=== PATIENT | male | born 1960 | race Caucasian/White ===

== ENCOUNTER 2024-02-17 15:36 | Inpatient (IN) | payer OTHER, SELFPAY ==
[2024-02-17] VITALS (16 sets, daily range): BP systolic 85–134; BP diastolic 56–74; PULSE 63–94; RESP 12–20; TEMP 36.3–36.4; O2SAT 98–100; BMI 26.3
--- NOTE | ~2024-02-17 | XR_ITS ---
EXAMINATION: XR chest 1V portable DATE: 02/18/2024 08:41 INDICATION: Hypertension. TECHNIQUE: A single frontal view of the chest was obtained. COMPARISON: None. FINDINGS: There is no pneumonia, pleural effusion, or pneumothorax. The heart size is normal. IMPRESSION: 1. No acute cardiopulmonary disease. Reviewed, dictated and finalized at location A. ITALITY INTERN
--- NOTE | ~2024-02-17 | XR_ITS ---
EXAM: XR lumbar spine 2-3V DATE: 02/17/2024 18:39 HISTORY: fall, limited range of motion . COMPARISON: None available. FINDINGS: 5 nonrib-bearing lumbar-type vertebral bodies. Pedicles intact. Normal vertebral body alig nment. Mild scoliosis. Vertebral body heights preserved. Multilevel degenerative disc disease. Multil evel moderate facet arthropathy. No fracture or dislocation. IMPRESSION: No acute fracture or traumatic malalignment detected in the lumbar spine. Reviewed, dictated and finalized at location K. STANT PROPERTY MANAGER
[2024-02-17 16:27] LABS: Basophils Percent Auto 0.4 % (0.2-1.2); Eosinophils Absolute Auto 0.1 K/mm3 (0-0.3); Eosinophils Percent Auto 0.9 % (0-4.4); Hematocrit 40.7 % (42.0-52.0); Hemoglobin 13.4 g/dL (14.0-18.0); Immature Granulocyte Absolute 0.03 K/mm3 (0.00-0.031); Immature Granulocyte Percent A 0.3 % (0-0.5); Lymphocytes Absolute Auto 0.98 K/mm3 (0.9-3.2); Lymphocytes Percent Auto 9.3 % (18.3-44.2); Mean Corpuscular HGB Conc 32.9 g/dl (32-36); Mean Corpuscular Hemoglobin 32.3 pg (26-34); Mean Corpuscular Volume 98.1 fl (80-100); Mean Platelet Volume 9.3 fl (7.4-10.4); Monocytes Absolute Auto 0.6 K/mm3 (0.1-0.6); Monocytes Percent Auto 5.6 % (2.6-8.5); Neutrophils Absolute Auto 8.8 K/mm3 (1.3-6.7); Neutrophils Percent Auto 83.5 % (45.5-73.1); Platelet Count Result 225 k/mm3 (150-375); Red Blood Count 4.15 M/mm3 (4.6-6.20); Red Cell Distribution Width 12.7 % (11.5-14.5); White Blood Count 10.5 K/mm3 (4.5-10.0)
[2024-02-17] MEDS: SODIUM CHLORIDE 0.9% IV 1,000 ML 999 ML IV CONT (16:34)
[2024-02-17 16:35] LABS: Alanine Aminotransferase 23 U/L (6-50); Albumin Level 4.1 g/dL (3.5-5.1); Alkaline Phosphatase 59 U/L (38-126); Anion Gap 7 mmol/L (4-12); Aspartate Amino Transferase 29 U/L (17-59); Bilirubin,Total 0.7 mg/dL (0.2-1.3); Blood Urea Nitrogen 20 mg/dL (9-20); Calcium 8.8 mg/dL (8.4-10.2); Carbon Dioxide 24 mmol/L (22-30); Chloride 109 mmol/L (98-107); Estimated CRCL calculation 58 ml/min; Estimated Glomerular Filt Rate > 60; Glucose 140 mg/dL (65-110); Potassium 4.5 mmol/L (3.4-5.0); Sodium 140 mmol/L (137-145)
[2024-02-17 16:39] LABS: INR 1.1; Prothrombin Time 14.1 Seconds (11.1-14.7)
[2024-02-17 16:40] LABS: Partial Thromboplastin Time 20.2 Seconds (22.3-36.8)
--- NOTE | 2024-02-17 17:16 | ED.GIBLEED ---
HPI - GI Bleed General Chief complaint: Abdominal Pain Stated complaint: lower back pain, BRBPR Time Seen by Provider: 02/17/24 16:22 History of Present Illness HPI Narrative: Pt has had 3 bright red stools today accompanied by crampy abdominal pain right before. After last BM pt had syncopal episode and wound up on the floor. Pt said he woke up and tried to get up and passed out again. Pt denies abdomina pain now. SBP on 80's. Related Data Allergies Allergy/AdvReac Type Severity Reaction Status Date / Time codeine AdvReac Intermediate DROWSINESS Verified 02/26/19 16:17 Review of Systems Review of Systems: All systems reviewed & are unremarkable except as noted in HPI and below PMFSH Past Medical History Medical History Benign colon polyp Diverticulosis Kidney stones Surgical History Surgical History History of colonoscopy History of tonsillectomy Family History Family History Father Diabetes mellitus Family history of cardiovascular disease Grandparent Diabetes mellitus Family history of glaucoma Family history of coronary artery disease Family history of malignant neoplasm of breast in first degree relative Social History Social History (Updated 02/17/24 @ 18:07 by Aline Ellison PA-C) Social History: Surrogate medical decision maker: Code status: Full code. Smoking status: Never smoker Second hand tobacco smoke exposure: No Alcohol intake: never Exam Const: General: healthy appearing Orientation/consciousness: patient oriented x3 Limitations: no limitations Eyes: Conjunctivae: conjunctivae normal EOM: EOMs intact bilaterally Chest: Chest palpation & inspection: normal inspection of the chest Resp: Effort & Inspection: normal respiratory effort Auscultation: clear to auscultation bilaterally Cardio: Rate: regular rate Rhythm: regular rhythm GI: GI Palp: Yes Soft to palpation and No Tenderness to palpation present (GI) Auscultation: normal bowel sounds Skin: General skin exam: normal color Wounds: no wounds Neuro: General: patient oriented x3, moves all extremities and no focal motor deficits Speech: normal speech Extrem: General: normal to inspection and no clubbing, cyanosis or edema Psych: Mental Status: mental status grossly normal Affect: normal affect Attitude: cooperative Course Vital Signs Vital signs: Vital Signs Temperature 97.3 F L 02/17/24 15:39 Pulse Rate 63 02/17/24 15:39 Respiratory Rate 15 02/17/24 15:39 Blood Pressure 95/73 L 02/17/24 15:39 Pulse Oximetry 100 02/17/24 15:39 Oxygen Delivery Room Air 02/17/24 15:39 Temperature 97.3 F L 02/17/24 15:39 Pulse Rate 77 02/17/24 18:05 Respiratory Rate 13 02/17/24 18:05 Blood Pressure 105/71 02/17/24 18:05 Pulse Oximetry 98 02/17/24 18:05 Oxygen Delivery Room Air 02/17/24 15:39 MDM - GI Bleed MDM Narrative Medical decision making narrative: Pt presents with 3 bright red stools and syncope x 2. SBP 80's. Will get lbs and type and screen and give NS bolus for pressure. Discussed with Dr Macario and will consult. Discussed with Aline Lucas admit to IMU. Lab Data 02/17/24 16:18 02/17/24 16:18 Labs: Lab Results 02/17/24 Range/Units 16:18 WBC 10.5 H (4.5-10.0) K/mm3 RBC 4.15 L (4.6-6.20) M/mm3 Hgb 13.4 L (14.0-18.0) g/dL Hct 40.7 L (42.0-52.0) % MCV 98.1 (80-100) fl MCH 32.3 (26-34) pg MCHC 32.9 (32-36) g/dl RDW 12.7 (11.5-14.5) % Plt Count 225 (150-375) k/mm3 MPV 9.3 (7.4-10.4) fl Immature Gran % (Auto) 0.3 (0-0.5) % Neut % (Auto) 83.5 H (45.5-73.1) % Lymph % (Auto) 9.3 L (18.3-44.2) % [place] % (Auto) 5.6 (2.6-8.5) % Eos % (Auto) 0.9 (0-4.4) % Baso % (Auto) 0.4 (0.2-1.2) % Lymph # (Auto) 0.98 (0.9-3.2) K/mm3 [place] # (Auto) 0.6 (0.1-0.6) K/mm3 Eos # (Auto) 0.1 (0-0.3) K/mm3 Baso # (Auto) 0.0 (0.0-0.1) K/mm3 Abs Immat Gran (auto) 0.03 (0.00-0.031) K/mm3 Absolute Neuts (auto) 8.8 H (1.3-6.7) K/mm3 Absolute Nucleated RBC 0.000 (0.0-0.012) K/mm3 Nucleated RBC % 0.0 (0.0-0.2) % PT 14.1 (11.1-14.7) Seconds INR 1.1 APTT 20.2 L (22.3-36.8) Seconds Sodium 140 (137-145) mmol/L Potassium 4.5 (3.4-5.0) mmol/L Chloride 109 H (98-107) mmol/L Carbon Dioxide 24 (22-30) mmol/L Anion Gap 7 (4-12) mmol/L BUN 20 (9-20) mg/dL Creatinine 1.20 (0.7-1.3) mg/dL Estim Creat Clear Calc 58 ml/min Estimated GFR > 60 (59 - ) Glucose 140 H (65-110) mg/dL Calcium 8.8 (8.4-10.2) mg/dL Total Bilirubin 0.7 (0.2-1.3) mg/dL AST 29 (17-59) U/L ALT 23 (6-50) U/L Alkaline Phosphatase 59 (38-126) U/L Total Protein 8.0 (6.3-8.2) g/dL Albumin 4.1 (3.5-5.1) g/dL Blood Type B Positive Antibody Screen Negative Critical Care Time Critical Care Time Critical Care Time: Yes Total Critical Care Time: 33 Discharge Plan Discharge Clinical Impression: Acute GI bleeding, Syncope Patient Disposition: Still a Patient Condition: Improved Instructions: Antibiotic Form Follow-up/Referrals: Maxwell,MD Beau [Primary Care Provider] -
--- NOTE | 2024-02-17 18:05 | PM.IMHP ---
H&P: HPI History of Present Illness Date/Time: 02/17/24 18:05 Chief Complaint: Syncope, bloody stools. Narrative: This is a 63-year-old male with history of diverticulosis, benign colon polyps, and kidney stones who presented to the emergency department via EMS for evaluation of syncope and bloody stools. The patient provides the following history. He felt fine when he got up this morning and sometime this afternoon he developed a rumbling sensation in his stomach and he went to the bathroom where he passed a soft brown stool admixed with bright red blood. The neck stool was strictly bright red blood and was reportedly in large amounts. Within our he again had the urge to have a bowel movement and when walking into the bathroom he began to feel weak, lightheaded, shaky, and sweaty. The next thing he remembers is waking up on the floor on his back. He was able to get himself back up part way but again lost consciousness, striking the left side of his face on the toilet. Eventually he was able to scoot himself down the stairs to call 911. He has not had any further episodes of rectal bleeding. He has never had similar symptoms. He denies fever, chills, sweats, vomiting, and current abdominal pain. He is not on blood thinners at home. At the time my evaluation he complains of some mild musculoskeletal pain in his lower back. In the ED: Blood pressure has been as low as 85/63. The remainder of his vital signs are stable. Labs were significant for WBC count 10.5, hemoglobin 13.4, hematocrit 40.7%, BUN 20, creatinine 1.20, glucose 140. He was given 1 L normal saline bolus with normalization of his blood pressures. He is being admitted in this setting for close monitoring and GI consultation. Review of Systems Review of Systems: 12 systems were reviewed and are negative except for as per HPI. [facility] Past Medical History Medical History Benign colon polyp Diverticulosis Kidney stones Surgical History Surgical History History of colonoscopy History of tonsillectomy Family History Family History Father Diabetes mellitus Family history of cardiovascular disease Grandparent Diabetes mellitus Family history of glaucoma Family history of coronary artery disease Family history of malignant neoplasm of breast in first degree relative Social History Social History (Updated 02/17/24 @ 22:06 by Aline Ellison PA-C) Social History: Surrogate medical decision maker: Shea Bruce, mother. Code status: Full code. Smoking status: Never smoker Second hand tobacco smoke exposure: No Alcohol intake: never Substance use type: does not use Do You Feel Safe in your Home?: Yes Lack of Transportation: No Lack of Food: Never True Current Housing: I Have Housing Concerned About Future Housing: No Difficulty Paying Gas/Electric Bills: No Difficulty Paying for Meds: No Currently Unemployed: No Education: High School Diploma/GED Difficulty w/ Childcare or Family Care: No Spiritual care concerns: No Meds Home Medications and Allergies Home Medications Medication Instructions Recorded Confirmed Type fexofenadine 60 mg capsule 60 mg PO DAILY 02/17/24 02/17/24 History glucosamine-chondroitin 250 mg-200 1 tablet PO DAILY 02/17/24 02/17/24 History mg tablet (Osteo Bi-Flex) Allergies Allergy/AdvReac Type Severity Reaction Status Date / Time codeine AdvReac Intermediate DROWSINESS Verified 02/17/24 19:19 Vital Signs Vital Signs - 24 hr 02/17/24 15:39 02/17/24 15:45 02/17/24 16:00 Temperature 97.3 F L Pulse Rate 63 70 73 Respiratory Rate 15 13 20 Blood Pressure 95/73 L 95/73 L 112/70 Pulse Oximetry 100 100 99 Oxygen Delivery Room Air 02/17/24 16:15 02/17/24 16:17 02/17/24 16:20 Temperature Pulse Rate 71 72 71 Respiratory Rate 14 19 19 Blood Pressure 89/66 L 85/63 L 87/56 L Pulse Oximetry 100 100 100 Oxygen Delivery 02/17/24 16:32 02/17/24 16:40 02/17/24 16:50 Temperature Pulse Rate 65 68 74 Respiratory Rate 12 20 19 Blood Pressure 108/70 99/68 L 114/64 Pulse Oximetry 100 100 100 Oxygen Delivery 02/17/24 17:20 Temperature Pulse Rate 78 Respiratory Rate 20 Blood Pressure 112/74 Pulse Oximetry 99 Oxygen Delivery Exam Narrative: General: Mildly ill-appearing male sitting up in bed. Weight: 83.2 kg. BMI: 26.3. HEENT: There is swelling to the left lower lip with a wound on the inner lip from a tooth. It does not go completely through. PERRL, EOMI. Sclera anicteric. Tacky mucous membranes. Neck: Supple. No midline vertebral tenderness. Respiratory: Lungs are clear to auscultation bilaterally. Cardiovascular: Regular rate and rhythm with S1-S2. Gastrointestinal: Abdomen is soft, nontender, and nondistended with positive bowel sounds. Skin: Warm and dry. Generalized pallor. Extremities: No cyanosis, clubbing, or edema. Radial and pedal pulses intact. Musculoskeletal: Mild tenderness to palpation over the lumbar paraspinous muscles bilaterally. No midline vertebral tenderness. Neurological: Alert and oriented x4. Cranial nerves 2-12 are grossly intact. No nystagmus. No gross focal deficits to casual conversation. Psychiatric: Pleasant and cooperative with appropriate mood and affect. H&P: Results Labs Labs: Short CBC 02/17/24 Range/Units 16:18 WBC 10.5 H (4.5-10.0) K/mm3 Hgb 13.4 L (14.0-18.0) g/dL Hct 40.7 L (42.0-52.0) % Plt Count 225 (150-375) k/mm3 BMP 02/17/24 16:18 Sodium 140 Potassium 4.5 Chloride 109 H Carbon Dioxide 24 BUN 20 Creatinine 1.20 Glucose 140 H Calcium 8.8 Liver Function 02/17/24 Range/Units 16:18 Total Bilirubin 0.7 (0.2-1.3) mg/dL AST 29 (17-59) U/L ALT 23 (6-50) U/L Alkaline Phosphatase 59 (38-126) U/L Albumin 4.1 (3.5-5.1) g/dL Impressions Lumbar Spine X-Ray 02/17/24 18:44 IMPRESSION: No acute fracture or traumatic malalignment detected in the lumbar spine. Assessment and Plan Assessment and plan (1) Lower GI bleed: Code(s): K92.2 - Gastrointestinal hemorrhage, unspecified Status: Acute (2) Syncope: Code(s): R55 - Syncope and collapse Status: Acute (3) Hypotension: Code(s): I95.9 - Hypotension, unspecified Status: Acute Plan The patient presented to the emergency department for evaluation of a syncopal and passing bright red blood as detailed in HPI. Labs, imaging, EKG, and all reports were personally reviewed. He has a history of diverticulosis on prior colonoscopy which may be the etiology of the bleeding. Hemoglobin is stable at this time and will be monitored; and transfuse if indicated. He will be NPO after midnight for possible endoscopy tomorrow. GI has been consulted and their input is appreciated. Syncope is likely related to a vasovagal response or transient drop in blood pressure from volume loss. Blood pressures have improved with normal saline and will be monitored closely. His home medications will be reviewed and resumed as appropriate. Findings and treatment plan were discussed with the patient. Questions were solicited and answered to satisfaction. The patient's medical management will be taken over by the hospitalist team in a.m. Quality VTE Prophylaxis VTE prophylaxis: mechanical ordered If No VTE Prophylaxis Answer both mechanical and pharmacologic: Reason no pharmacologic proph: medical contraindication (rectal bleeding) The patient has been admitted under observation status. Hospitalist [facility] Advance Care Plan I have confirmed that the patient's Advanced Care Plan is present, code status is documented, or surrogate decision maker is listed in patient medical record.: Yes Medication Reconciliation I have utilized all available resources to obtain, update and review the patients current medications (includes all prescriptions, OTC, herbals, cannabis, and nutritional supplements).: Yes
[2024-02-17] MEDS: SODIUM CHLORIDE 0.9% IV 1,000 ML 125 ML IV CONT (18:17)
--- NOTE | 2024-02-17 20:03 | ADMGEN ---
This patient, Vincenzo Bruce, was admitted to IMU Room 203-01. Patient/family oriented to hospital policies and general routines including ID bracelet, bed and alarms, visiting hours, pain management, procedures, bathroom and other care routines, personal items, smoking policy, room service/diet, and visiting hours. Information on how to activate the Rapid Response Team has been discussed. Patient/Family are encouraged to report perceived risks to care and to ask questions if they do not understand what they are told or what they should do.
[2024-02-17 21:13] LABS: Hematocrit 35.3 % (42.0-52.0)
[2024-02-17] MEDS: polyethylene glycoL 3350 238 GM BOTTLE 119 GM PO (23:09)
[2024-02-17] MEDS: ACETAMINOPHEN 325 MG TABLET 650 MG PO (23:10)
[2024-02-18] VITALS (27 sets, daily range): BP systolic 85–122; BP diastolic 58–73; PULSE 64–98; RESP 11–20; TEMP 36.2–36.8; O2SAT 96–100
[2024-02-18] MEDS: SODIUM CHLORIDE 0.9% IV 1,000 ML 100 ML IV CONT ×2 (01:17→11:26)
[2024-02-18] MEDS: polyethylene glycoL 3350 238 GM BOTTLE 119 GM PO (05:51)
[2024-02-18 07:10] LABS: Hematocrit 39.7 % (42.0-52.0); Hemoglobin 12.7 g/dL (14.0-18.0); Mean Platelet Volume 9.4 fl (7.4-10.4); Platelet Count Result 233 k/mm3 (150-375); Red Blood Count 3.97 M/mm3 (4.6-6.20); Red Cell Distribution Width 12.8 % (11.5-14.5); White Blood Count 9.1 K/mm3 (4.5-10.0)
[2024-02-18 07:25] LABS: Anion Gap 6 mmol/L (4-12); Blood Urea Nitrogen 14 mg/dL (9-20); Calcium 8.8 mg/dL (8.4-10.2); Carbon Dioxide 26 mmol/L (22-30); Chloride 109 mmol/L (98-107); Estimated CRCL calculation 63 ml/min; Estimated Glomerular Filt Rate > 60; Glucose 121 mg/dL (65-110); Magnesium 2.1 mg/dL (1.6-2.3); Potassium 4.2 mmol/L (3.4-5.0); Sodium 141 mmol/L (137-145)
--- NOTE | 2024-02-18 13:10 | PM.IMPN ---
Progress Note: A&P Assessment and Plan (1) Lower GI bleed: Code(s): K92.2 - Gastrointestinal hemorrhage, unspecified Status: Acute (2) Syncope: Code(s): R55 - Syncope and collapse Status: Acute (3) Hypotension: Code(s): I95.9 - Hypotension, unspecified Status: Acute Plan The patient presented to the emergency department for evaluation of a syncopal and passing bright red blood. He has a history of diverticulosis on prior colonoscopy which may be the etiology of the bleeding. Hgb 13.4 on admisison but stable on repeat. GI consulted. NPO currently for endoscopy today. Monitor HH. Syncope felt related to a vasovagal response or transient drop in blood pressure from volume loss. No signifincat drop in HH. Blood pressure improved with IV fluids. Echo ordered. Check orthostatics. CXR clear. UA ordered to exclude occult infections. Subjective Date/time seen: 02/18/24 13:10 Interval history: 63yo male with diverticulosis, benign colon polyps, and kidney stones who presented to the emergency department via EMS for evaluation of syncope and bloody stools. No hx of lightheadedness with standing recently. No diarrhea prior to rectal bleeding. No abd pain. No complaints of CP, SOB or cough recently. No dysuria or hematuria. Exam Narrative: AF 97.9 103/62 80 20 100% ra Gen - NARD Chest - CTA bilaterally, nml RR CV - RRR S1/S2. Tele showing no significant dysrhythmias Abd - Soft, NT/ND, Positive BS Ext - No pedal edema Psych - Nml mood and affect Skin - Warm and dry Objective Data Vital Signs Vital Signs: Vital Signs - 24 hr 02/17/24 15:39 02/17/24 15:45 02/17/24 16:00 Temperature 97.3 F L Pulse Rate 63 70 73 Respiratory Rate 15 13 20 Blood Pressure 95/73 L 95/73 L 112/70 Pulse Oximetry 100 100 99 Oxygen Delivery Room Air 02/17/24 16:15 02/17/24 16:17 02/17/24 16:20 Temperature Pulse Rate 71 72 71 Respiratory Rate 14 19 19 Blood Pressure 89/66 L 85/63 L 87/56 L Pulse Oximetry 100 100 100 Oxygen Delivery 02/17/24 16:32 02/17/24 16:40 02/17/24 16:50 Temperature Pulse Rate 65 68 74 Respiratory Rate 12 20 19 Blood Pressure 108/70 99/68 L 114/64 Pulse Oximetry 100 100 100 Oxygen Delivery 02/17/24 17:20 02/17/24 18:05 02/17/24 19:55 Temperature 97.6 F Pulse Rate 78 77 94 Respiratory Rate 20 13 18 Blood Pressure 112/74 105/71 134/61 Pulse Oximetry 99 98 100 Oxygen Delivery 02/17/24 20:07 02/17/24 20:09 02/18/24 00:05 Temperature 97.6 F 97.7 F Pulse Rate 82 75 98 Respiratory Rate 18 18 Blood Pressure 134/61 114/64 114/59 L Pulse Oximetry 100 100 99 Oxygen Delivery 02/17/24 20:00 02/17/24 22:00 02/18/24 00:00 Temperature Pulse Rate 82 77 97 Respiratory Rate Blood Pressure Pulse Oximetry Oxygen Delivery 02/18/24 02:00 02/18/24 03:58 02/18/24 04:00 Temperature 97.7 F Pulse Rate 71 77 77 Respiratory Rate 18 Blood Pressure 118/73 Pulse Oximetry 100 Oxygen Delivery 02/18/24 06:00 02/18/24 07:34 02/18/24 08:01 Temperature 97.7 F Pulse Rate 94 78 Respiratory Rate 16 Blood Pressure 85/58 L 105/58 L Pulse Oximetry 100 Oxygen Delivery 02/18/24 10:38 02/18/24 11:45 Temperature 97.9 F Pulse Rate 80 Respiratory Rate 20 Blood Pressure 103/62 Pulse Oximetry 96 100 Oxygen Delivery Room Air Intake/Output Intake/Output: Intake & Output 02/15/24 02/16/24 02/17/24 02/18/24 23:59 23:59 23:59 23:59 Intake Total 1608.3 3413.3 Output Total 1300 Balance 1608.3 2113.3 Meds/Results Medications: Active Medications Generic Name Dose Route Start Last Admin Trade Name Freq PRN Reason Stop Dose Admin Acetaminophen 650 mg 02/17/24 22:11 02/17/24 23:10 Acetaminophen 325 Mg Tablet PO 650 mg Q6H PRN Administration Mild Pain (1-3) or Fever Sodium Chloride 1,000 mls @ 100 mls/hr 02/17/24 17:35 02/18/24 11:26 Normal Saline Iv IV CONT 100 mls/hr .Q10H JES Administration Ondansetron HCl 4 mg 02/17/24 22:11 Ondansetron Inj 4 Mg/2 Ml Vial IV PUSH Q6H PRN Nausea And Vomiting Perflutren Lipid Microsphere 0 ml 02/17/24 22:11 Perflutren Lipid Microspheres 1.5 Ml Vial Diluted To 10 Ml Total Volume IV PUSH 02/20/24 22:11 ONCE PRN adequate visualization Protocol Radiology Results: ITS Impressions Lumbar Spine X-Ray 02/17/24 18:44 IMPRESSION: No acute fracture or traumatic malalignment detected in the lumbar spine. Chest X-Ray 02/18/24 08:43 IMPRESSION: 1. No acute cardiopulmonary disease. Labs Labs: Laboratory Results - last 24 hr 02/17/24 02/17/24 02/18/24 16:18 21:03 06:45 WBC 10.5 H 9.1 RBC 4.15 L 3.97 L Hgb 13.4 L 12.0 L 12.7 L Hct 40.7 L 35.3 L 39.7 L MCV 98.1 100.0 MCH 32.3 32.0 MCHC 32.9 32.0 RDW 12.7 12.8 Plt Count 225 233 MPV 9.3 9.4 Immature Gran % (Auto) 0.3 Neut % (Auto) 83.5 H Lymph % (Auto) 9.3 L [place] % (Auto) 5.6 Eos % (Auto) 0.9 Baso % (Auto) 0.4 Lymph # (Auto) 0.98 [place] # (Auto) 0.6 Eos # (Auto) 0.1 Baso # (Auto) 0.0 Abs Immat Gran (auto) 0.03 Absolute Neuts (auto) 8.8 H Absolute Nucleated RBC 0.000 Nucleated RBC % 0.0 PT 14.1 INR 1.1 APTT 20.2 L Sodium 140 141 Potassium 4.5 4.2 Chloride 109 H 109 H Carbon Dioxide 24 26 Anion Gap 7 6 BUN 20 14 D Creatinine 1.20 1.10 Estim Creat Clear Calc 58 63 Estimated GFR > 60 > 60 Glucose 140 H 121 H Calcium 8.8 8.8 Magnesium 2.1 Total Bilirubin 0.7 AST 29 ALT 23 Alkaline Phosphatase 59 Total Protein 8.0 Albumin 4.1 Blood Type B Positive Antibody Screen Negative
[2024-02-18 13:38] LABS: Add Urine Microscopic? NO; Appearance Urine Clear (Clear); Bilirubin Urine Negative (Negative); Blood Urine Negative (Negative); Color Urine Yellow (Yellow); Glucose Urine UA Negative (Negative); Ketones Urine Negative (Negative); Leukocyte Esterase Ur Negative LEU/UL (Negative); Nitrate Urine Negative (Negative); Protein Urine Negative (Negative); Specific Grav Ur 1.017 (1.001-1.035); Urobilinogen Urine 0.2 mg/dL (<2.0)
[2024-02-18] MEDS: LACTATED RINGERS 1,000 ML 150 ML IV CONT (14:20)
--- NOTE | 2024-02-18 14:35 | WPDANESEPPF ---
Anes - Initial Pre Proc Eval Procedure: Operation Date: 02/18/24 14:30 Proposed Procedures p Colonoscopy - Ramiro Macario MD Date/Time: 02/18/24 14:35 Surgeon: Wily Barcenas MD Pre Op Diagnosis: GI Bleed, Syncope Patient Data Age: 63 Gender: M Height: 1.78 m Weight: 83.2 kg Last Vital Signs Temp 97.1 F L 02/18/24 14:00 Pulse 71 02/18/24 14:00 Resp 18 02/18/24 14:00 BP 122/69 02/18/24 14:00 Pulse Ox 100 02/18/24 14:00 O2 Del Method Room Air 02/18/24 14:00 Allergies Allergy/AdvReac Type Severity Reaction Status Date / Time codeine AdvReac Intermediate DROWSINESS Verified 02/18/24 14:14 Home Medications Medication Instructions Recorded Confirmed Type fexofenadine 60 mg capsule 60 mg PO DAILY 02/17/24 02/18/24 History glucosamine-chondroitin 250 mg-200 1 tablet PO DAILY 02/17/24 02/18/24 History mg tablet (Osteo Bi-Flex) Laboratory Tests 02/17/24 02/17/24 02/18/24 16:18 21:03 06:45 WBC 10.5 H K/mm3 9.1 K/mm3 (4.5-10.0) (4.5-10.0) RBC 4.15 L M/mm3 3.97 L M/mm3 (4.6-6.20) (4.6-6.20) Hgb 13.4 L g/dL 12.0 L g/dL 12.7 L g/dL (14.0-18.0) (14.0-18.0) (14.0-18.0) Hct 40.7 L % 35.3 L % 39.7 L % (42.0-52.0) (42.0-52.0) (42.0-52.0) MCV 98.1 fl 100.0 fl (80-100) (80-100) MCH 32.3 pg 32.0 pg (26-34) (26-34) MCHC 32.9 g/dl 32.0 g/dl (32-36) (32-36) RDW 12.7 % 12.8 % (11.5-14.5) (11.5-14.5) Plt Count 225 k/mm3 233 k/mm3 (150-375) (150-375) MPV 9.3 fl 9.4 fl (7.4-10.4) (7.4-10.4) Immature Gran % (Auto) 0.3 % (0-0.5) Neut % (Auto) 83.5 H % (45.5-73.1) Lymph % (Auto) 9.3 L % (18.3-44.2) [place] % (Auto) 5.6 % (2.6-8.5) Eos % (Auto) 0.9 % (0-4.4) Baso % (Auto) 0.4 % (0.2-1.2) Lymph # (Auto) 0.98 K/mm3 (0.9-3.2) [place] # (Auto) 0.6 K/mm3 (0.1-0.6) Eos # (Auto) 0.1 K/mm3 (0-0.3) Baso # (Auto) 0.0 K/mm3 (0.0-0.1) Abs Immat Gran (auto) 0.03 K/mm3 (0.00-0.031) Absolute Neuts (auto) 8.8 H K/mm3 (1.3-6.7) Absolute Nucleated RBC 0.000 K/mm3 (0.0-0.012) Nucleated RBC % 0.0 % (0.0-0.2) PT 14.1 Seconds (11.1-14.7) INR 1.1 APTT 20.2 L Seconds (22.3-36.8) Sodium 140 mmol/L 141 mmol/L (137-145) (137-145) Potassium 4.5 mmol/L 4.2 mmol/L (3.4-5.0) (3.4-5.0) Chloride 109 H mmol/L 109 H mmol/L (98-107) (98-107) Carbon Dioxide 24 mmol/L 26 mmol/L (22-30) (22-30) Anion Gap 7 mmol/L 6 mmol/L (4-12) (4-12) BUN 20 mg/dL 14 D mg/dL (9-20) (9-20) Creatinine 1.20 mg/dL 1.10 mg/dL (0.7-1.3) (0.7-1.3) Estim Creat Clear Calc 58 ml/min 63 ml/min Estimated GFR > 60 > 60 (59 - ) (59 - ) Glucose 140 H mg/dL 121 H mg/dL (65-110) (65-110) Calcium 8.8 mg/dL 8.8 mg/dL (8.4-10.2) (8.4-10.2) Magnesium 2.1 mg/dL (1.6-2.3) Total Bilirubin 0.7 mg/dL (0.2-1.3) AST 29 U/L (17-59) ALT 23 U/L (6-50) Alkaline Phosphatase 59 U/L (38-126) Total Protein 8.0 g/dL (6.3-8.2) Albumin 4.1 g/dL (3.5-5.1) Urine Color Urine Appearance Urine pH Ur Specific [place] Urine Protein Urine Glucose (UA) Urine Ketones Ur Blood (Man) Urine Nitrate Urine Bilirubin Urine Urobilinogen Leukocyte Esterase Rfl Blood Type B Positive Antibody Screen Negative 02/18/24 13:24 WBC RBC Hgb Hct MCV MCH MCHC RDW Plt Count MPV Immature Gran % (Auto) Neut % (Auto) Lymph % (Auto) [place] % (Auto) Eos % (Auto) Baso % (Auto) Lymph # (Auto) [place] # (Auto) Eos # (Auto) Baso # (Auto) Abs Immat Gran (auto) Absolute Neuts (auto) Absolute Nucleated RBC Nucleated RBC % PT INR APTT Sodium Potassium Chloride Carbon Dioxide Anion Gap BUN Creatinine Estim Creat Clear Calc Estimated GFR Glucose Calcium Magnesium Total Bilirubin AST ALT Alkaline Phosphatase Total Protein Albumin Urine Color Yellow (Yellow) Urine Appearance Clear (Clear) Urine pH 6.0 (5.0-9.0) Ur Specific [place] 1.017 (1.001-1.035) Urine Protein Negative mg/dL (Negative) Urine Glucose (UA) Negative mg/dL (Negative) Urine Ketones Negative mg/dL (Negative) Ur Blood (Man) Negative (Negative) Urine Nitrate Negative (Negative) Urine Bilirubin Negative (Negative) Urine Urobilinogen 0.2 mg/dL (<2.0) Leukocyte Esterase Rfl Negative [place]/UL (Negative) Blood Type Antibody Screen Patient hx anesthesia problems: none Family hx anesthesia problems: none Results Review: All pre-operative results and documents have been reviewed as part of the pre-operative evaluation. [facility] Past Medical History Medical History Benign colon polyp Diverticulosis Kidney stones Surgical History Surgical History History of colonoscopy History of tonsillectomy Family History Family History Father Diabetes mellitus Family history of cardiovascular disease Grandparent Diabetes mellitus Family history of glaucoma Family history of coronary artery disease Family history of malignant neoplasm of breast in first degree relative Social History Social History (Updated 02/17/24 @ 22:06 by Aline Ellison PA-C) Social History: Surrogate medical decision maker: Shea Bruce, mother. Code status: Full code. Smoking status: Never smoker Second hand tobacco smoke exposure: No Alcohol intake: never Substance use type: does not use Do You Feel Safe in your Home?: Yes Lack of Transportation: No Lack of Food: Never True Current Housing: I Have Housing Concerned About Future Housing: No Difficulty Paying Gas/Electric Bills: No Difficulty Paying for Meds: No Currently Unemployed: No Education: High School Diploma/GED Difficulty w/ Childcare or Family Care: No Spiritual care concerns: No Anes - Eval Final PreProcedure Day of Procedure 02/18/24 14:35 Patient weight: normal Heart: regular rate and rhythm Lungs: clear to auscultation Airway: Mallampati scale class II Neurological: alert and oriented Last oral intake: >/= 8 hours ASA classification: IV Emergent: no Anesthetic plan: proceed Anesthesia type and monitoring: general GIVS and standard monitoring Results Review: All pre-operative results and documents have been reviewed as part of the pre-operative evaluation. Informed Consent: The patient's anesthetic plan and its attendant risks and benefits were discussed with the patient/family/POA. Questions were solicited and answers provided to the satisfaction of the patient/family/POA.
--- NOTE | 2024-02-18 14:58 | P.PNGI_ITS ---
Patient is down in GI lab for colonoscopy - will proceed Subjective Date/time seen: 02/18/24 14:58 Objective Data Vital Signs Vital Signs: Vital Signs - 24 hr 02/17/24 15:39 02/17/24 15:45 02/17/24 16:00 Temperature 97.3 F L Pulse Rate 63 70 73 Respiratory Rate 15 13 20 Blood Pressure 95/73 L 95/73 L 112/70 Pulse Oximetry 100 100 99 Oxygen Delivery Room Air 02/17/24 16:15 02/17/24 16:17 02/17/24 16:20 Temperature Pulse Rate 71 72 71 Respiratory Rate 14 19 19 Blood Pressure 89/66 L 85/63 L 87/56 L Pulse Oximetry 100 100 100 Oxygen Delivery 02/17/24 16:32 02/17/24 16:40 02/17/24 16:50 Temperature Pulse Rate 65 68 74 Respiratory Rate 12 20 19 Blood Pressure 108/70 99/68 L 114/64 Pulse Oximetry 100 100 100 Oxygen Delivery 02/17/24 17:20 02/17/24 18:05 02/17/24 19:55 Temperature 97.6 F Pulse Rate 78 77 94 Respiratory Rate 20 13 18 Blood Pressure 112/74 105/71 134/61 Pulse Oximetry 99 98 100 Oxygen Delivery 02/17/24 20:07 02/17/24 20:09 02/18/24 00:05 Temperature 97.6 F 97.7 F Pulse Rate 82 75 98 Respiratory Rate 18 18 Blood Pressure 134/61 114/64 114/59 L Pulse Oximetry 100 100 99 Oxygen Delivery 02/17/24 20:00 02/17/24 22:00 02/18/24 00:00 Temperature Pulse Rate 82 77 97 Respiratory Rate Blood Pressure Pulse Oximetry Oxygen Delivery 02/18/24 02:00 02/18/24 03:58 02/18/24 04:00 Temperature 97.7 F Pulse Rate 71 77 77 Respiratory Rate 18 Blood Pressure 118/73 Pulse Oximetry 100 Oxygen Delivery 02/18/24 06:00 02/18/24 07:34 02/18/24 08:01 Temperature 97.7 F Pulse Rate 94 78 Respiratory Rate 16 Blood Pressure 85/58 L 105/58 L Pulse Oximetry 100 Oxygen Delivery 02/18/24 10:38 02/18/24 11:45 02/18/24 08:00 Temperature 97.9 F Pulse Rate 80 74 Respiratory Rate 20 Blood Pressure 103/62 Pulse Oximetry 96 100 Oxygen Delivery Room Air 02/18/24 12:00 02/18/24 10:00 02/18/24 14:00 Temperature 97.1 F L Pulse Rate 72 73 71 Respiratory Rate 18 Blood Pressure 122/69 Pulse Oximetry 100 Oxygen Delivery Room Air Intake/Output Intake/Output: Intake & Output 02/15/24 02/16/24 02/17/24 02/18/24 23:59 23:59 23:59 23:59 Intake Total 1608.3 3413.3 Output Total 1300 Balance 1608.3 2113.3 Meds/Results Medications: Active Medications Generic Name Dose Route Start Last Admin Trade Name Freq PRN Reason Stop Dose Admin Acetaminophen 650 mg 02/17/24 22:11 02/17/24 23:10 Acetaminophen 325 Mg Tablet PO 650 mg Q6H PRN Administration Mild Pain (1-3) or Fever Sodium Chloride 1,000 mls @ 100 mls/hr 02/17/24 17:35 02/18/24 11:26 Normal Saline Iv IV CONT 100 mls/hr .Q10H JES Administration Lactated Ringer's 1,000 mls @ 150 mls/hr 02/18/24 14:15 02/18/24 14:20 Lr - Lactated Ringers Iv IV CONT 150 mls/hr .Q6H40M JES Administration Ondansetron HCl 4 mg 02/17/24 22:11 Ondansetron Inj 4 Mg/2 Ml Vial IV PUSH Q6H PRN Nausea And Vomiting Perflutren Lipid Microsphere 0 ml 02/17/24 22:11 Perflutren Lipid Microspheres 1.5 Ml Vial Diluted To 10 Ml Total Volume IV PUSH 02/20/24 22:11 ONCE PRN adequate visualization Protocol Radiology Results: ITS Impressions Lumbar Spine X-Ray 02/17/24 18:44 IMPRESSION: No acute fracture or traumatic malalignment detected in the lumbar spine. Chest X-Ray 02/18/24 08:43 IMPRESSION: 1. No acute cardiopulmonary disease. Labs Labs: Laboratory Results - last 24 hr 02/17/24 02/17/24 02/18/24 16:18 21:03 06:45 WBC 10.5 H 9.1 RBC 4.15 L 3.97 L Hgb 13.4 L 12.0 L 12.7 L Hct 40.7 L 35.3 L 39.7 L MCV 98.1 100.0 MCH 32.3 32.0 MCHC 32.9 32.0 RDW 12.7 12.8 Plt Count 225 233 MPV 9.3 9.4 Immature Gran % (Auto) 0.3 Neut % (Auto) 83.5 H Lymph % (Auto) 9.3 L [place] % (Auto) 5.6 Eos % (Auto) 0.9 Baso % (Auto) 0.4 Lymph # (Auto) 0.98 [place] # (Auto) 0.6 Eos # (Auto) 0.1 Baso # (Auto) 0.0 Abs Immat Gran (auto) 0.03 Absolute Neuts (auto) 8.8 H Absolute Nucleated RBC 0.000 Nucleated RBC % 0.0 PT 14.1 INR 1.1 APTT 20.2 L Sodium 140 141 Potassium 4.5 4.2 Chloride 109 H 109 H Carbon Dioxide 24 26 Anion Gap 7 6 BUN 20 14 D Creatinine 1.20 1.10 Estim Creat Clear Calc 58 63 Estimated GFR > 60 > 60 Glucose 140 H 121 H Calcium 8.8 8.8 Magnesium 2.1 Total Bilirubin 0.7 AST 29 ALT 23 Alkaline Phosphatase 59 Total Protein 8.0 Albumin 4.1 Urine Color Urine Appearance Urine pH Ur Specific [place] Urine Protein Urine Glucose (UA) Urine Ketones Ur Blood (Man) Urine Nitrate Urine Bilirubin Urine Urobilinogen Leukocyte Esterase Rfl Blood Type B Positive Antibody Screen Negative 02/18/24 13:24 WBC RBC Hgb Hct MCV MCH MCHC RDW Plt Count MPV Immature Gran % (Auto) Neut % (Auto) Lymph % (Auto) [place] % (Auto) Eos % (Auto) Baso % (Auto) Lymph # (Auto) [place] # (Auto) Eos # (Auto) Baso # (Auto) Abs Immat Gran (auto) Absolute Neuts (auto) Absolute Nucleated RBC Nucleated RBC % PT INR APTT Sodium Potassium Chloride Carbon Dioxide Anion Gap BUN Creatinine Estim Creat Clear Calc Estimated GFR Glucose Calcium Magnesium Total Bilirubin AST ALT Alkaline Phosphatase Total Protein Albumin Urine Color Yellow Urine Appearance Clear Urine pH 6.0 Ur Specific [place] 1.017 Urine Protein Negative Urine Glucose (UA) Negative Urine Ketones Negative Ur Blood (Man) Negative Urine Nitrate Negative Urine Bilirubin Negative Urine Urobilinogen 0.2 Leukocyte Esterase Rfl Negative Blood Type Antibody Screen
--- NOTE | 2024-02-18 14:59 | WPDGICN ---
Assessment and Plan Assessment and plan (1) Lower GI bleed: Code(s): K92.2 - Gastrointestinal hemorrhage, unspecified Status: Acute Assessment and Plan: The patient is deemed a good candidate for the procedure. Consent signed. Will proceed. (2) Diverticulosis: Code(s): K57.90 - Diverticulosis of intestine, part unspecified, without perforation or abscess without bleeding Status: Acute GI Consult Note Consult date/time: 02/18/24 14:59 Reason for consult: rectal bleeding HPI: Vincenzo Bruce is a 63 year old male who presented to the emergency department for evaluation of a syncopal and passing bright red blood as detailed in HPI. He has a history of diverticulosis on prior colonoscopy . Hemoglobin is stable at this time and will be monitored; and transfuse if indicated. Blood pressures have improved with normal saline. After overnight prep he will have a colonoscpy this afternoon, possible etiology : diverticular bleeding. Review of Systems Review of Systems: All systems reviewed & are unremarkable except as noted in HPI and below PMFSH Past Medical History Medical History (Updated 02/18/24 @ 15:01 by Ramiro Macario MD) Benign colon polyp Diverticulosis Kidney stones Surgical History Surgical History History of colonoscopy History of tonsillectomy Family History Family History Father Diabetes mellitus Family history of cardiovascular disease Grandparent Diabetes mellitus Family history of glaucoma Family history of coronary artery disease Family history of malignant neoplasm of breast in first degree relative Social History Social History (Updated 02/17/24 @ 22:06 by Aline Ellison PA-C) Social History: Surrogate medical decision maker: Shea Bruce, mother. Code status: Full code. Smoking status: Never smoker Second hand tobacco smoke exposure: No Alcohol intake: never Substance use type: does not use Do You Feel Safe in your Home?: Yes Lack of Transportation: No Lack of Food: Never True Current Housing: I Have Housing Concerned About Future Housing: No Difficulty Paying Gas/Electric Bills: No Difficulty Paying for Meds: No Currently Unemployed: No Education: High School Diploma/GED Difficulty w/ Childcare or Family Care: No Spiritual care concerns: No Meds Home Medications and Allergies Home Medications Medication Instructions Recorded Confirmed Type fexofenadine 60 mg capsule 60 mg PO DAILY 02/17/24 02/18/24 History glucosamine-chondroitin 250 mg-200 1 tablet PO DAILY 02/17/24 02/18/24 History mg tablet (Osteo Bi-Flex) Allergies Allergy/AdvReac Type Severity Reaction Status Date / Time codeine AdvReac Intermediate DROWSINESS Verified 02/18/24 14:14 Vital Signs Vital Signs - 24 hr 02/17/24 15:39 02/17/24 15:45 02/17/24 16:00 Temperature 97.3 F L Pulse Rate 63 70 73 Respiratory Rate 15 13 20 Blood Pressure 95/73 L 95/73 L 112/70 Pulse Oximetry 100 100 99 Oxygen Delivery Room Air 02/17/24 16:15 02/17/24 16:17 02/17/24 16:20 Temperature Pulse Rate 71 72 71 Respiratory Rate 14 19 19 Blood Pressure 89/66 L 85/63 L 87/56 L Pulse Oximetry 100 100 100 Oxygen Delivery 02/17/24 16:32 02/17/24 16:40 02/17/24 16:50 Temperature Pulse Rate 65 68 74 Respiratory Rate 12 20 19 Blood Pressure 108/70 99/68 L 114/64 Pulse Oximetry 100 100 100 Oxygen Delivery 02/17/24 17:20 02/17/24 18:05 02/17/24 19:55 Temperature 97.6 F Pulse Rate 78 77 94 Respiratory Rate 20 13 18 Blood Pressure 112/74 105/71 134/61 Pulse Oximetry 99 98 100 Oxygen Delivery 02/17/24 20:07 02/17/24 20:09 02/18/24 00:05 Temperature 97.6 F 97.7 F Pulse Rate 82 75 98 Respiratory Rate 18 18 Blood Pressure 134/61 114/64 114/59 L Pulse Oximetry 100 100 99 Oxygen Delivery 02/17/24 20:00 02/17/24 22:00 02/18/24 00:00 Temperature Pulse Rate 82 77 97 Respiratory Rate Blood Pressure Pulse Oximetry Oxygen Delivery 02/18/24 02:00 02/18/24 03:58 02/18/24 04:00 Temperature 97.7 F Pulse Rate 71 77 77 Respiratory Rate 18 Blood Pressure 118/73 Pulse Oximetry 100 Oxygen Delivery 02/18/24 06:00 02/18/24 07:34 02/18/24 08:01 Temperature 97.7 F Pulse Rate 94 78 Respiratory Rate 16 Blood Pressure 85/58 L 105/58 L Pulse Oximetry 100 Oxygen Delivery 02/18/24 10:38 02/18/24 11:45 02/18/24 08:00 Temperature 97.9 F Pulse Rate 80 74 Respiratory Rate 20 Blood Pressure 103/62 Pulse Oximetry 96 100 Oxygen Delivery Room Air 02/18/24 12:00 02/18/24 10:00 02/18/24 14:00 Temperature 97.1 F L Pulse Rate 72 73 71 Respiratory Rate 18 Blood Pressure 122/69 Pulse Oximetry 100 Oxygen Delivery Room Air Exam Narrative: AF 97.9 103/62 80 20 100% ra Gen - NARD Chest - CTA bilaterally, nml RR CV - RRR S1/S2 Abd - Soft, NT/ND, Positive BS Ext - No pedal edema Neuro - Alert and oriented. Nonfocal exam. Psych - Nml mood and affect Skin - Warm and dry Results Labs 02/18/24 06:45 02/18/24 06:45 Labs: Short CBC 02/17/24 02/17/24 02/18/24 Range/Units 16:18 21:03 06:45 WBC 10.5 H 9.1 (4.5-10.0) K/mm3 Hgb 13.4 L 12.0 L 12.7 L (14.0-18.0) g/dL Hct 40.7 L 35.3 L 39.7 L (42.0-52.0) % Plt Count 225 233 (150-375) k/mm3 BMP 02/17/24 02/18/24 16:18 06:45 Sodium 140 141 Potassium 4.5 4.2 Chloride 109 H 109 H Carbon Dioxide 24 26 BUN 20 14 D Creatinine 1.20 1.10 Glucose 140 H 121 H Calcium 8.8 8.8 Liver Function 02/17/24 Range/Units 16:18 Total Bilirubin 0.7 (0.2-1.3) mg/dL AST 29 (17-59) U/L ALT 23 (6-50) U/L Alkaline Phosphatase 59 (38-126) U/L Albumin 4.1 (3.5-5.1) g/dL Urine 02/18/24 Range/Units 13:24 Urine Color Yellow (Yellow) Urine Appearance Clear (Clear) Urine pH 6.0 (5.0-9.0) Ur Specific [place] 1.017 (1.001-1.035) Urine Protein Negative (Negative) mg/dL Urine Glucose (UA) Negative (Negative) mg/dL
--- NOTE | 2024-02-18 15:37 | WPDGIPROGNO ---
Progress Note: A&P Assessment and Plan (1) Diverticulosis: Code(s): K57.90 - Diverticulosis of intestine, part unspecified, without perforation or abscess without bleeding Status: Acute Assessment and Plan: The patient is not actively bleeding. The bleeding source was most likely diverticular. If patient is hemodynamically stable and tolerates feedings, he can be discharged home. A high-fiber is recommended. Subjective Date/time seen: 02/18/24 15:37 Objective Data Vital Signs Vital Signs: Vital Signs - 24 hr 02/17/24 15:39 02/17/24 15:45 02/17/24 16:00 Temperature 97.3 F L Pulse Rate 63 70 73 Respiratory Rate 15 13 20 Blood Pressure 95/73 L 95/73 L 112/70 Pulse Oximetry 100 100 99 Oxygen Delivery Room Air 02/17/24 16:15 02/17/24 16:17 02/17/24 16:20 Temperature Pulse Rate 71 72 71 Respiratory Rate 14 19 19 Blood Pressure 89/66 L 85/63 L 87/56 L Pulse Oximetry 100 100 100 Oxygen Delivery 02/17/24 16:32 02/17/24 16:40 02/17/24 16:50 Temperature Pulse Rate 65 68 74 Respiratory Rate 12 20 19 Blood Pressure 108/70 99/68 L 114/64 Pulse Oximetry 100 100 100 Oxygen Delivery 02/17/24 17:20 02/17/24 18:05 02/17/24 19:55 Temperature 97.6 F Pulse Rate 78 77 94 Respiratory Rate 20 13 18 Blood Pressure 112/74 105/71 134/61 Pulse Oximetry 99 98 100 Oxygen Delivery 02/17/24 20:07 02/17/24 20:09 02/18/24 00:05 Temperature 97.6 F 97.7 F Pulse Rate 82 75 98 Respiratory Rate 18 18 Blood Pressure 134/61 114/64 114/59 L Pulse Oximetry 100 100 99 Oxygen Delivery 02/17/24 20:00 02/17/24 22:00 02/18/24 00:00 Temperature Pulse Rate 82 77 97 Respiratory Rate Blood Pressure Pulse Oximetry Oxygen Delivery 02/18/24 02:00 02/18/24 03:58 02/18/24 04:00 Temperature 97.7 F Pulse Rate 71 77 77 Respiratory Rate 18 Blood Pressure 118/73 Pulse Oximetry 100 Oxygen Delivery 02/18/24 06:00 02/18/24 07:34 02/18/24 08:01 Temperature 97.7 F Pulse Rate 94 78 Respiratory Rate 16 Blood Pressure 85/58 L 105/58 L Pulse Oximetry 100 Oxygen Delivery 02/18/24 10:38 02/18/24 11:45 02/18/24 08:00 Temperature 97.9 F Pulse Rate 80 74 Respiratory Rate 20 Blood Pressure 103/62 Pulse Oximetry 96 100 Oxygen Delivery Room Air 02/18/24 12:00 02/18/24 10:00 02/18/24 14:00 Temperature 97.1 F L Pulse Rate 72 73 71 Respiratory Rate 18 Blood Pressure 122/69 Pulse Oximetry 100 Oxygen Delivery Room Air Intake/Output Intake/Output: Intake & Output 02/15/24 02/16/24 02/17/24 02/18/24 23:59 23:59 23:59 23:59 Intake Total 1608.3 3590.8 Output Total 1300 Balance 1608.3 2290.8 Meds/Results Medications: Active Medications Generic Name Dose Route Start Last Admin Trade Name Freq PRN Reason Stop Dose Admin Acetaminophen 650 mg 02/17/24 22:11 02/17/24 23:10 Acetaminophen 325 Mg Tablet PO 650 mg Q6H PRN Administration Mild Pain (1-3) or Fever Sodium Chloride 1,000 mls @ 100 mls/hr 02/17/24 17:35 02/18/24 11:26 Normal Saline Iv IV CONT 100 mls/hr .Q10H JES Administration Lactated Ringer's 1,000 mls @ 150 mls/hr 02/18/24 14:15 02/18/24 15:31 Lr - Lactated Ringers Iv IV CONT 150 mls/hr .Q6H40M JES Titration Ondansetron HCl 4 mg 02/17/24 22:11 Ondansetron Inj 4 Mg/2 Ml Vial IV PUSH Q6H PRN Nausea And Vomiting Perflutren Lipid Microsphere 0 ml 02/17/24 22:11 Perflutren Lipid Microspheres 1.5 Ml Vial Diluted To 10 Ml Total Volume IV PUSH 02/20/24 22:11 ONCE PRN adequate visualization Protocol Radiology Results: ITS Impressions Lumbar Spine X-Ray 02/17/24 18:44 IMPRESSION: No acute fracture or traumatic malalignment detected in the lumbar spine. Chest X-Ray 02/18/24 08:43 IMPRESSION: 1. No acute cardiopulmonary disease. Labs Labs: Laboratory Results - last 24 hr 02/17/24 02/17/24 02/18/24 16:18 21:03 06:45 WBC 10.5 H 9.1 RBC 4.15 L 3.97 L Hgb 13.4 L 12.0 L 12.7 L Hct 40.7 L 35.3 L 39.7 L MCV 98.1 100.0 MCH 32.3 32.0 MCHC 32.9 32.0 RDW 12.7 12.8 Plt Count 225 233 MPV 9.3 9.4 Immature Gran % (Auto) 0.3 Neut % (Auto) 83.5 H Lymph % (Auto) 9.3 L [place] % (Auto) 5.6 Eos % (Auto) 0.9 Baso % (Auto) 0.4 Lymph # (Auto) 0.98 [place] # (Auto) 0.6 Eos # (Auto) 0.1 Baso # (Auto) 0.0 Abs Immat Gran (auto) 0.03 Absolute Neuts (auto) 8.8 H Absolute Nucleated RBC 0.000 Nucleated RBC % 0.0 PT 14.1 INR 1.1 APTT 20.2 L Sodium 140 141 Potassium 4.5 4.2 Chloride 109 H 109 H Carbon Dioxide 24 26 Anion Gap 7 6 BUN 20 14 D Creatinine 1.20 1.10 Estim Creat Clear Calc 58 63 Estimated GFR > 60 > 60 Glucose 140 H 121 H Calcium 8.8 8.8 Magnesium 2.1 Total Bilirubin 0.7 AST 29 ALT 23 Alkaline Phosphatase 59 Total Protein 8.0 Albumin 4.1 Urine Color Urine Appearance Urine pH Ur Specific [place] Urine Protein Urine Glucose (UA) Urine Ketones Ur Blood (Man) Urine Nitrate Urine Bilirubin Urine Urobilinogen Leukocyte Esterase Rfl Blood Type B Positive Antibody Screen Negative 02/18/24 13:24 WBC RBC Hgb Hct MCV MCH MCHC RDW Plt Count MPV Immature Gran % (Auto) Neut % (Auto) Lymph % (Auto) [place] % (Auto) Eos % (Auto) Baso % (Auto) Lymph # (Auto) [place] # (Auto) Eos # (Auto) Baso # (Auto) Abs Immat Gran (auto) Absolute Neuts (auto) Absolute Nucleated RBC Nucleated RBC % PT INR APTT Sodium Potassium Chloride Carbon Dioxide Anion Gap BUN Creatinine Estim Creat Clear Calc Estimated GFR Glucose Calcium Magnesium Total Bilirubin AST ALT Alkaline Phosphatase Total Protein Albumin Urine Color Yellow Urine Appearance Clear Urine pH 6.0 Ur Specific [place] 1.017 Urine Protein Negative Urine Glucose (UA) Negative Urine Ketones Negative Ur Blood (Man) Negative Urine Nitrate Negative Urine Bilirubin Negative Urine Urobilinogen 0.2 Leukocyte Esterase Rfl Negative Blood Type Antibody Screen
--- NOTE | 2024-02-18 22:11 | ECHO_ITS ---
Patient Info Name: Vincenzo Bruce Age: 63 years : 1960 Gender: Male Ht: 70 in Wt: 183 lbs BSA: 2.04 m2 HR: 77 bpm BP: 118 / 73 mmHg Heart Rhythm: Sinus Rhythm Technical Quality: Good Exam Date: 02/18/2024 8:42 AM Exam Location: Echo Lab Patient Status: Inpatient Admit Date: 02/17/2024 Staff Ordering Physician: Aline Ellison PA-C Floater Operator: Marcella Finley RDCS Attending Provider: Wily Barcenas MD Referring Physician: Terra JUARES; Exam Type: CA echo doppler color flow Study Info Indications - syncope Complete two-dimensional, color flow and Doppler transthoracic echocardiogram is performed. Summary 1. Left ventricular chamber dimension is normal. 2. Left ventricular systolic function is normal, estimated at 65-70%. 3. The left ventricular diastolic function is grade I diastolic dysfunction. 4. Right ventricular chamber dimension is mildly enlarged. 5. Right ventricular systolic function is normal. 6. No significant valvular disease. Left Ventricle Left ventricular chamber dimension is normal. Left ventricular systolic function is normal, estimated at 65-70%. There is no increased left ventricular wall thickness. The left ventricular diastolic function is grade I diastolic dysfunction. Right Ventricle Right ventricular chamber dimension is mildly enlarged. Right ventricular systolic function is normal. Left Atria Left atrial chamber dimension is normal. Right Atria Right atrial chamber dimension is normal. Atrial Septum Intact interatrial septum visualized by color flow imaging. Aortic Valve The aortic valve is probable trileaflet. There is no aortic valve stenosis. There is no aortic valve regurgitation. Pulmonic Valve The pulmonic valve is not well visualized. There is no pulmonic regurgitation. Mitral Valve There is trace mitral valve regurgitation. Tricuspid Valve There is trace tricuspid valve regurgitation. Pericardium/Pleural The pericardium appears epicardial fat pad. There is no pericardial effusion. Inferior Vena Cava Normal inferior vena cava with >50% collapse upon inspiration consistent with normal right atrial pressure, 3 mmHg. Aorta The aortic root size at the sinus of Valsalva is normal. Left Ventricular Outflow Tract Name Value Normal LVOT 2D LVOT Diameter 1.9 cm LVOT Doppler LVOT Peak Gradient 7 mmHg LVOT Mean Gradient 4 mmHg LVOT VTI 28 cm LVOT VTI/AV VTI Ratio 1.0 LVOT Stroke Volume 84 ml LVOT CO 6.3 l/min LVOT CI 3.1 l/min/m2 Mitral Valve Name Value Normal MV Doppler MV Decel [place] 388 cm/s2 MV PHT 64 ms MV Area (PHT) 3.4 cm2 4.0-5.0 MV Diastolic Function MV E Peak Velocity 86 cm/s MV A Peak Velocity 83 cm/s MV E/A 1.0 MV Decel Time 221 ms MV Annular TDI MV E/e' (Septal) 12.7 <=8.0 MV E/e' (Lateral) 9.8 <=8.0 MV E/e' (Average) 11.2 Tricuspid Valve Name Value Normal TV Regurgitation Doppler TR Peak Velocity 172 cm/s TR Peak Gradient 12 mmHg Estimated PAP/RSVP RA Pressure 3 mmHg <=5 PA Systolic Pressure 15 mmHg <36 RV Systolic Pressure 15 mmHg <36 Aortic Valve Name Value Normal AV Doppler AV Peak Velocity 142 cm/s AV Peak Gradient 8 mmHg AV Mean Gradient 5 mmHg AV VTI 29 cm AV Area (Cont Eq VTI) 2.9 cm2 >=3.0 AV Area (Cont Eq Miles) 2.7 cm2 AV Regurgitation 2D LVOT Area 3.0 cm2 Ventricles Name Value Normal LV Dimensions 2D/MM IVS Diastolic Thickness (2D) 0.8 cm 0.6-1.0 LVID Diastole (2D) 4.7 cm 4.2-5.8 LVIW Diastolic Thickness (2D) 0.8 cm 0.6-1.0 LVID Systole (2D) 3.3 cm 2.5-4.0 LVOT Diameter 1.9 cm LV Mass (2D Cubed) 128.95 g 88.00-224.00 LV Mass Index (2D Cubed) 63 g/m2 49-115 Relative Wall Thickness (2D) 0.35 LV Fractional Shortening/Ejection Fraction 2D/MM LV Fractional Shortening (2D) 30 % 25-43 LV EF (2D Teicholz) 58 % 52-72 LV Diastolic Volume (4C MOD) 106 ml LV EF (4C MOD) 65 % LV Diastolic Volume (2C MOD) 99 ml LV EF (2C MOD) 78 % LV Diastolic Volume (BP MOD) 103 ml 62-150 LV Diastolic Volume Index (BP MOD) 51 ml/m2 34-74 LV Systolic Volume (BP MOD) 31 ml 21-61 LV Systolic Volume Index (BP MOD) 15 ml/m2 11-31 LV EF (BP MOD) 70 % 52-72 LV Diastolic Length (4C) 7.8 cm LV Systolic Length (4C) 6.3 cm LV Stroke Volume (4C MOD) 69 ml Atria Name Value Normal LA Dimensions LA Volume (4C A-L) 31 ml LA Volume (BP A-L) 41 ml RA Dimensions RA Area (4C) 9.9 cm2 <=18.0 Report Signatures
[2024-02-19] VITALS (19 sets, daily range): BP systolic 85–124; BP diastolic 54–70; PULSE 76–99; RESP 16–18; TEMP 36.5–37.1; O2SAT 95–98
--- NOTE | 2024-02-19 07:53 | P.PNAN_ITS ---
Anes - Prog Note Post-Op Date/Time: 02/19/24 07:53 Cardiovascular status: normal Respiratory status: normal Airway patency: baseline Mental status: baseline Post-Op hydration status: normal Vital Signs: Last Vital Signs Temp 36.8 C 02/19/24 04:16 Pulse 77 02/19/24 06:00 Resp 18 02/19/24 04:16 BP 96/56 L 02/19/24 04:16 Pulse Ox 97 02/19/24 04:16 O2 Del Method Room Air 02/19/24 04:00 Pain Score (VAS): 0 I/O: Intake & Output 02/18/24 02/18/24 02/19/24 15:59 23:59 07:59 Intake Total 1177.5 1157.5 Output Total 639 036 5633 Balance 777.5 832.5 -1100 Laboratory Tests 02/18/24 06:45 02/18/24 06:45 02/18/24 13:24 Urine Color Yellow Urine Appearance Clear Urine pH 6.0 Ur Specific [place] 1.017 Urine Protein Negative Urine Glucose (UA) Negative Urine Ketones Negative Ur Blood (Man) Negative Urine Nitrate Negative Urine Bilirubin Negative Urine Urobilinogen 0.2 Leukocyte Esterase Rfl Negative Post-procedural complaints: none Patient Feedback: Patient satisfied with anesthetic care.
[2024-02-19 08:28] LABS: Hematocrit 30.6 % (42.0-52.0); Hemoglobin 10.3 g/dL (14.0-18.0); Mean Corpuscular HGB Conc 33.7 g/dl (32-36); Mean Corpuscular Hemoglobin 33.1 pg (26-34); Mean Corpuscular Volume 98.4 fl (80-100); Mean Platelet Volume 9.3 fl (7.4-10.4); Platelet Count Result 181 k/mm3 (150-375); Red Blood Count 3.11 M/mm3 (4.6-6.20); Red Cell Distribution Width 13.1 % (11.5-14.5); White Blood Count 6.8 K/mm3 (4.5-10.0)
--- NOTE | 2024-02-19 13:53 | PM.IMPN ---
Progress Note: A&P Assessment and Plan (1) Lower GI bleed: Code(s): K92.2 - Gastrointestinal hemorrhage, unspecified Status: Acute Assessment and Plan: Hemoglobin is slightly down. Plan is to continue current treatment monitor closely. GI consult noted (2) Syncope: Code(s): R55 - Syncope and collapse Status: Acute Assessment and Plan: No new episode. Monitor closely (3) Hypotension: Code(s): I95.9 - Hypotension, unspecified Status: Acute Assessment and Plan: Stable, continue current Plan Plan is to continue current treatment monitor hemoglobin closely. Start physical therapy. Subjective Date/time seen: 02/19/24 13:53 Interval history: 63yo male with diverticulosis, benign colon polyps, and kidney stones who presented to the emergency department via EMS for evaluation of syncope and bloody stools. Patient was seen during the morning rounds today. According to the patient the has bloody stools this morning. hemoglobin slightly dropped. Shortness of breath or chest pain Review of Systems Review of Systems: 12 systems were reviewed and are negative except for as per HPI. Exam Narrative: AF 97.9 103/62 80 20 100% ra Gen - NARD Chest - CTA bilaterally, nml RR CV - RRR S1/S2. Tele showing no significant dysrhythmias Abd - Soft, NT/ND, Positive BS Ext - No pedal edema Psych - Nml mood and affect Skin - Warm and dry Objective Data Vital Signs Vital Signs: Vital Signs - 24 hr 02/18/24 14:00 02/18/24 15:36 02/18/24 15:46 Temperature 36.2 C L Pulse Rate 71 68 67 Respiratory Rate 18 14 14 Blood Pressure 122/69 93/61 L 90/58 L Pulse Oximetry 100 100 100 Oxygen Delivery Room Air 02/18/24 14:56 02/18/24 15:56 02/18/24 16:06 Temperature Pulse Rate 64 64 69 Respiratory Rate 11 L 18 17 Blood Pressure 92/60 L 106/68 111/65 Pulse Oximetry 100 100 100 Oxygen Delivery 02/18/24 16:16 02/18/24 17:30 02/18/24 17:30 Temperature 36.6 C Pulse Rate 71 73 75 Respiratory Rate 17 14 Blood Pressure 116/73 117/69 Pulse Oximetry 100 100 Oxygen Delivery 02/18/24 18:00 02/18/24 19:52 02/18/24 19:54 Temperature 36.8 C Pulse Rate 71 71 85 Respiratory Rate 16 18 Blood Pressure 122/59 L 120/67 Pulse Oximetry 100 100 Oxygen Delivery 02/18/24 19:55 02/18/24 20:00 02/18/24 20:00 Temperature Pulse Rate 76 77 Respiratory Rate 18 Blood Pressure 109/62 Pulse Oximetry 100 Oxygen Delivery Room Air 02/18/24 22:00 02/19/24 00:37 02/19/24 00:00 Temperature 36.9 C Pulse Rate 97 77 Respiratory Rate 18 Blood Pressure 116/54 L Pulse Oximetry 97 Oxygen Delivery Room Air 02/19/24 00:00 02/19/24 02:00 02/19/24 04:16 Temperature 36.8 C Pulse Rate 81 97 78 Respiratory Rate 18 Blood Pressure 96/56 L Pulse Oximetry 97 Oxygen Delivery 02/19/24 04:00 02/19/24 04:00 02/19/24 06:00 Temperature Pulse Rate 76 77 Respiratory Rate Blood Pressure Pulse Oximetry Oxygen Delivery Room Air 02/19/24 08:00 02/19/24 08:00 02/19/24 08:34 Temperature 36.5 C Pulse Rate 96 Respiratory Rate 18 Blood Pressure 107/60 100/60 100/65 Pulse Oximetry 98 Oxygen Delivery 02/19/24 08:34 02/19/24 08:00 02/19/24 10:00 Temperature Pulse Rate 83 86 Respiratory Rate Blood Pressure 85/63 L Pulse Oximetry Oxygen Delivery 02/19/24 12:00 02/19/24 12:00 Temperature 36.8 C Pulse Rate 82 92 Respiratory Rate 16 Blood Pressure 96/61 L Pulse Oximetry 95 Oxygen Delivery Intake/Output Intake/Output: Intake & Output 02/16/24 02/17/24 02/18/24 02/19/24 23:59 23:59 23:59 23:59 Intake Total 1608.3 4748.3 240 Output Total 1625 1400 Balance 1608.3 3123.3 -1160 Meds/Results Medications: Active Medications Generic Name Dose Route Start Last Admin Trade Name Freq PRN Reason Stop Dose Admin Acetaminophen 650 mg 02/17/24 22:11 02/17/24 23:10 Acetaminophen 325 Mg Tablet PO 650 mg Q6H PRN Administration Mild Pain (1-3) or Fever Ondansetron HCl 4 mg 02/17/24 22:11 Ondansetron Inj 4 Mg/2 Ml Vial IV PUSH Q6H PRN Nausea And Vomiting Pantoprazole Sodium 40 mg 02/20/24 09:00 Pantoprazole Sodium Iv 40 Mg Vial IV PUSH QAM [facility] Perflutren Lipid Microsphere 0 ml 02/17/24 22:11 Perflutren Lipid Microspheres 1.5 Ml Vial Diluted To 10 Ml Total Volume IV PUSH 02/20/24 22:11 ONCE PRN adequate visualization Protocol Radiology Results: ITS Impressions Lumbar Spine X-Ray 02/17/24 18:44 IMPRESSION: No acute fracture or traumatic malalignment detected in the lumbar spine. Chest X-Ray 02/18/24 08:43 IMPRESSION: 1. No acute cardiopulmonary disease. Labs Labs: Laboratory Results - last 24 hr 02/19/24 08:21 WBC 6.8 RBC 3.11 L Hgb 10.3 L Hct 30.6 L MCV 98.4 MCH 33.1 MCHC 33.7 RDW 13.1 Plt Count 181 MPV 9.3 Quality VTE Prophylaxis VTE prophylaxis: mechanical ordered
[2024-02-20] VITALS (8 sets, daily range): BP systolic 97–105; BP diastolic 58–65; PULSE 4–91; RESP 16; TEMP 36.7–36.9; O2SAT 96–98
[2024-02-20 05:05] LABS: Hematocrit 30.1 % (42.0-52.0); Hemoglobin 9.7 g/dL (14.0-18.0); Mean Corpuscular HGB Conc 32.2 g/dl (32-36); Mean Corpuscular Hemoglobin 32.1 pg (26-34); Mean Corpuscular Volume 99.7 fl (80-100); Mean Platelet Volume 9.3 fl (7.4-10.4); Platelet Count Result 188 k/mm3 (150-375); Red Blood Count 3.02 M/mm3 (4.6-6.20); Red Cell Distribution Width 12.9 % (11.5-14.5); White Blood Count 7.6 K/mm3 (4.5-10.0)
[2024-02-20] MEDS: PANTOPRAZOLE SODIUM IV 40 MG VIAL IV PUSH (08:27)
[2024-02-20] MEDS: ACETAMINOPHEN 325 MG TABLET 650 MG PO (08:33)
--- NOTE | 2024-02-20 10:11 | PM.DS ---
DS: Admitting Diagnosis Discharge Date 02/20/2024 Admitting Diagnosis Lower GI bleed DS: Discharge Diagnosis Discharge Diagnosis (1) Lower GI bleed: Code(s): K92.2 - Gastrointestinal hemorrhage, unspecified Status: Acute Assessment and Plan: Hemoglobin is slightly down. Plan is to continue current treatment monitor closely. GI consult noted (2) Syncope: Code(s): R55 - Syncope and collapse Status: Acute Assessment and Plan: No new episode. Monitor closely (3) Hypotension: Code(s): I95.9 - Hypotension, unspecified Status: Acute Assessment and Plan: Stable, continue current Plan Plan is to continue current treatment monitor hemoglobin closely. Start physical therapy. DS: Summary Hospital Course Reason for hospitalization: GI bleed Hospital Course: 63 years old male was admitted possible GI bleed. GI was consulted. Endoscope was performed. Diagnosis was made as possible diverticular disease. patient hemoglobin was monitored. Today hemoglobin is 9.7. Patient is feeling better. Patient discharged home stable condition. Patient advised to come back in ER if he starts bleeding again. Follow-up with primary care physician and GI is scheduled as outpatient Status at Discharge Cognitive/behavioral status at discharge: Stable Time Spent with Patient Time attestation: Total time spent providing and/or coordinating discharge services: 30 minutes Exam Narrative: AF 97.9 103/62 80 20 100% ra Gen - NARD Chest - CTA bilaterally, nml RR CV - RRR S1/S2. Tele showing no significant dysrhythmias Abd - Soft, NT/ND, Positive BS Ext - No pedal edema Psych - Nml mood and affect Skin - Warm and dry DS: Data Data Completed and Pending Labs on day of discharge: Labs from last 24 hours 02/20/24 04:25 WBC 7.6 RBC 3.02 L Hgb 9.7 L Hct 30.1 L MCV 99.7 MCH 32.1 MCHC 32.2 RDW 12.9 Plt Count 188 MPV 9.3 Discharge Plan Discharge Attending physician on discharge: Jakub Arzate Discharging Clinician: Jakub Arzate Patient Disposition: Home, Self-Care Activity: as tolerated Diet: as tolerated Patient Instructions: Antibiotic Form, Pain Management (DC) Stand Alone Forms: General Discharge Information Follow-up/Referrals: Maxwell,MD Baeu [Primary Care Provider] - Troy Goyal MD [Physician] - Discharge Medications: New ferrous sulfate [Iron (ferrous sulfate)] 325 mg (65 mg iron) tablet 325 mg PO TID Qty: 90 0RF Continued glucosamine-chondroitin [Osteo Bi-Flex] 250-200 mg Tablet 1 tablet PO DAILY Rx Instructions: give after food/meal [place] 60 mg Capsule 60 mg PO DAILY Date of admission: 02/17/24 17:35 Primary Care Provider: SulemaBeau Admitting Provider: Wily Barcenas Attending physician on admission: Wily Barcenas Condition: Improved Quality VTE Prophylaxis VTE prophylaxis: mechanical ordered
--- NOTE | 2024-02-20 12:06 | PC.NURSE ---
pt waiting on customer support engineer to get here for his ride home, he will notify nurse when ride is here
== END 2024-02-20 12:16 | disposition home or self-care (01) | DRG 379 ==
LOC: ANHED 17:31 → ANHIMU 19:32
PROVIDERS: Emergency Medicine; Internal Medicine; Internal Medicine Gastroenterology; Physician Assistant; Admitting Provider General Practice; Emergency Provider Emergency Medicine; PCP Internal Medicine; Visit Provider Internal Medicine
PROC: 0DJD8ZZ Inspection of Lower Intestinal Tract, Via Natural or Artificial Opening Endoscopic (ICD-10-PCS; CPT 45378; principal; 2024-02-18 14:30)
DX: K57.31 Diverticulosis of large intestine without perforation or abscess with bleeding (principal); R55 Syncope and collapse; I95.9 Hypotension, unspecified; Z87.442 Personal history of urinary calculi; K64.1 Second degree hemorrhoids
CPT/HCPCS: 36415; 71045; 72100; 80048; 80053; 81003; 83735; 85014; 85018; 85025; 85027; 85610; 85730; 86850; 86900; 86901; 93306; 96360; 97161; 99285; A9270; J2003; J2470; J2704; J7030; J7120